=== PATIENT | male | born 1985 | race African-American/Black ===

== ENCOUNTER 2023-02-03 19:11 | Emergency (ER) | payer SELFPAY ==
[~2023-02-03] VITALS: Ht 182.9 cm; Wt 130.2 kg
[2023-02-03] MEDS ORDERED: AMOXICILLIN500 MG PO (19:39)
[2023-02-03] MEDS ORDERED: DEXAMETHASONE SOD PHOS INJ 4 MG/ML SDV ONE (19:51)
[2023-02-03 19:55] VITALS: BP 154/95; PULSE 104; RESP 18; TEMP 98.4; O2SAT 99
[2023-02-03] MEDS ORDERED: DEXAMETHASONE SOD PHOS INJ 4 MG/ML SDV IM ONE (20:00)
== END 2023-02-03 19:55 | disposition home or self-care (01) ==
LOC: EDBD 19:11 → FSED 19:19
DX: R07.0 Pain in throat (principal); J02.0 Streptococcal pharyngitis
CPT/HCPCS: 96372; 99282; J1100